=== PATIENT | male | born 1990 | race Caucasian/White ===

== ENCOUNTER 2017-03-28 08:24 | Emergency (ER) | payer OTHER ==
[~2017-03-28] VITALS: Ht 180.3 cm; Wt 87.5 kg
[2017-03-28 08:32] VITALS: TEMP 36.4; Ht 180.3 cm; Wt 87.5 kg
[2017-03-28] MEDS ORDERED: IBUPROFEN 600 MG TAB PO STA (08:43)
--- NOTE | 2017-03-28 08:47 | EMERGENCY ROOM VISIT NOTE ---
History Report prepared by Odilia: Angela Camarena Under the Supervision of: Dr. Clint Gomez M.D. First contact with patient: 08:31 Chief Complaint: KNEEPAIN Stated Complaint: LEFT KNEE INJURY - WORK History of Present Illness The patient is a 27 year old male who presents to the Emergency Room with complaints of constant left knee pain. The patient reports twisting his knee yesterday at [employer]. The patient describes the pain as being tingly and rates it at an 8/10. He reports that he has a previous meniscus injury on his left knee and he has been having similar pain. The patient denies having other symptoms. Source of History: patient Onset: yesterday Position: knee (left) Symptom Intensity: rated at an 8/10 Quality: tingling Timing: constant Review of Systems See HPI for pertinent positives & negatives. A total of 10 systems reviewed and were otherwise negative. Past Medical & Surgical Medical Problems: (1) Asthma (2) Injury of meniscus of left knee Surgical Problems: (1) Hx of cholecystectomy Family History Cancer Diabetes mellitus Gallbladder disease Hypertension Kidney stones Lung disease Social History Smoking Status: Never Smoker Marital Status: single Current/Historical Medications Scheduled Misc Natural Products (Osteo Bi-Flex Joint Shiel), 1 TAB PO DAILY Multivitamin (Multivitamin), 1 TAB PO DAILY Allergies Coded Allergies: Cefprozil (Unverified Allergy, Unknown, rash, 03/28/17) Codeine (Unverified Allergy, Unknown, rash, 03/28/17) Fluticasone (Unverified Allergy, Unknown, can't breathe and turns red, ) Penicillins (Unverified Allergy, Unknown, rash, 03/28/17) Salmeterol (Unverified Allergy, Unknown, can't breathe and turns red, 03/28) Physical Exam Vital Signs Date Time Temp Pulse Resp B/P (MAP) Pulse Ox O2 Delivery O2 Flow Rate FiO2 03/28/17 10:22 65 16 149/73 99 03/28/17 08:32 36.4 75 18 131/85 98 Room Air Physical Exam GENERAL: Patient is a healthy-appearing well-nourished male HEAD: Normocephalic atraumatic EYES: Ocular movements intact pupils equal and react to light OROPHARYNX mucous membranes are moist no exudates present no erythema or edema present NECK: Supple no nuchal rigidity CHEST: Good equal expansion LUNGS: Clear and equal to auscultation CARDIAC: Normal S1 and S2 ABDOMEN: Soft nontender no guarding BACK: No CVA tenderness EXTREMITIES: Good range of motion of left knee, left hip, and left ankle. Neurovascularly intact at foot. Knee cap is in place and there is no evidence of swelling and no pain with varus or valgus stress. Normal anterior/posterior drawer sign. NEURO: Patient is following commands and answering questions appropriately. Alert and oriented x3 Cranial Nerves 2-12 grossly intact Medical Decision & Procedures ER Provider Diagnostic Interpretation: X-ray results as stated below per interpretation by me and the radiologist: LEFT KNEE 2 VIEWS CLINICAL HISTORY: Left knee pain. FINDINGS: AP and crosstable lateral views of left knee are obtained. No prior studies are available for comparison at the time of dictation. The skeletal structures are well mineralized. No fracture is seen. The joint spaces of the knee are well-maintained. There is no significant joint effusion. The overlying soft tissues are within normal limits. IMPRESSION: No acute bony abnormality is seen in the left knee. Electronically signed by: Dago Mir M.D. 03/28/2017 9:41 AM Dictated Date/Time: 03/28/2017 9:40 AM Medications Administered Medications (Trade) Dose Ordered Sig/Akin Route Start Time Stop Time Status Last Admin Dose Admin Ibuprofen (Motrin Tab) 600 mg NOW STAT PO 03/28/17 08:43 03/28/17 08:45 DC 03/28/17 08:51 600 MG ED Course 0841: Past medical records reviewed. The patient was evaluated in room A12B. A complete history and physical examination was performed. 0843: Ordered Motrin Tab 600 mg PO. 0940: Upon reexamination the patient is resting. I discussed results and treatment plan with the patient. He verbalizes agreement and understanding. The patient is ready for discharge. Medical Decision Differentials include: dislocation, subluxation, meniscal tear, effusion, and ligament injury. This is a 27-year-old male who presents emergency department complaining of left knee pain. The patient has good range of motion at the hip knee ankle as well as the knee. There is no evidence of swelling to indicate joint effusion or joint infection. The patient was given Motrin in the emergency department. I do feel that the patient as well as to be discharged home as his x-rays do not show any evidence of broken bones. The patient will be placed on crutches however I stressed the need for follow-up with orthopedics. Patient was in agreement with the treatment plan. Medication Reconcilliation Current Medication List: was personally reviewed by me Blood Pressure Screening Patient's blood pressure: Elevated blood pressure Blood pressure disposition: Referred to PCP Impression Primary Impression: Knee pain Scribe Attestation The scribe's documentation has been prepared under my direction and personally reviewed by me in its entirety. I confirm that the note above accurately reflects all work, treatment, procedures, and medical decision making performed by me. Departure Information Dispostion Home / Self-Care Referrals No Doctor, Assigned (PCP) Forms HOME CARE DOCUMENTATION FORM, IMPORTANT VISIT INFORMATION, School Instructions, Work Instructions Patient Instructions ED Meniscal Injury Knee Poss, My [facility] Additional Instructions Follow up with DR La's office or ortho at home You were found to have an elevated blood pressure today (>120 sytolic or >90 diastolic). Per medicare guidelines, you need to follow up with this blood pressure screening with your Primary Care Physician (PCP). For a new PCP call [phone]. Take 600 mg Ibuprofen every 6 hours You have been examined and treated today on an emergency basis only. This is not a substitute for, or an effort to provide, complete comprehensive medical care. It is impossible to recognize and treat all injuries or illnesses in a single emergency department visit. It is therefore important that you follow up closely with your PCP. Call as soon as possible for an appointment. Thank you for your time and consideration. I look forward to speaking with you again soon. Please don't hesitate to call us if you have any questions. Problem Qualifiers Primary Impression: Knee pain Chronicity: acute Laterality: left Qualified Codes: M25.562 - Pain in left knee
[2017-03-28] MEDS ORDERED: MULT-506 PO (08:49)
[2017-03-28] MEDS ORDERED: MISCTAB30 PO (08:49)
--- NOTE | 2017-03-28 09:42 | DIAGNOSTIC IMAGING REPORT ---
LEFT KNEE 2 VIEWS CLINICAL HISTORY: Left knee pain. FINDINGS: AP and crosstable lateral views of left knee are obtained. No prior studies are available for comparison at the time of dictation. The skeletal structures are well mineralized. No fracture is seen. The joint spaces of the knee are well-maintained. There is no significant joint effusion. The overlying soft tissues are within normal limits. IMPRESSION: No acute bony abnormality is seen in the left knee. Electronically signed by: Dago Mir M.D. 03/28/2017 9:41 AM Dictated Date/Time: 03/28/2017 9:40 AM
[2017-03-28 10:22] VITALS: BP 149/73; PULSE 65; O2SAT 99
== END 2017-03-28 10:23 | disposition home or self-care (01) ==
LOC: C.EDB 08:26 → C.EDA 10:23
DX: M25.562 Pain in left knee (principal); X50.1XXA Overexertion from prolonged static or awkward postures, initial encounter; Y92.89 Other specified places as the place of occurrence of the external cause; J45.909 Unspecified asthma, uncomplicated; Z80.9 Family history of malignant neoplasm, unspecified; Z83.3 Family history of diabetes mellitus; Z83.79 Family history of other diseases of the digestive system; Z82.49 Family history of ischemic heart disease and other diseases of the circulatory system; Z84.1 Family history of disorders of kidney and ureter; Z83.6 Family history of other diseases of the respiratory system